=== PATIENT | male | born 1975 | race Caucasian/White ===

== ENCOUNTER 2024-01-20 18:48 | Emergency (ER) | payer OTHER, SELFPAY ==
[2024-01-20 18:55] VITALS: BP 170/104
--- NOTE | 2024-01-20 21:07 | ED.GENMED ---
History of Present Illness
General
Chief Complaint: Dental Problem
Source: patient
Exam Limitations: none
Time Seen by Provider: 01/20/24 20:52
History of Present Illness
History of Present Illness:
48-year-old male presents with ongoing issues in the right upper dentition into the right face. He states has been ongoing for weeks to months. His family convinced him to come get seen. Patient states he travels a lot for work and often just
puts off the care of his teeth. He states he has fractured teeth and gets his pain on the right side of his face up into his right cheek toward his right eye medially as well as laterally towards right anglican. He states it does seem to be off and
on and lancinating at times. No swelling. He does get cold and hot sensitivity to his teeth. 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 He states his foot
was red the other day. Is not sure if it is related
Past History
Past History
ED Past Surgical History: Orthopedic
Phy Exam
Physical Exam
Physical Exam:
CONSTITUTIONAL Vital signs reviewed, Patient alert and oriented to person, place and time. Well-appearing
HEAD atraumatic, normocephalic.
EYES eyelids normal to inspection, Extraocular muscles intact, Conjunctiva normal, Sclera normal.
ENT poor dentition. Dental caries noted to bilateral upper molars. Significantly noted to the right upper molars. Minimal tenderness. No facial swelling. No maxillary swelling. Right posterior molar is broken to the base at the gingiva.
NECK normal range of motion, Trachea midline, no jugular venous distention.
RESP no respiratory distress
BACK No obvious deformities
UPPER EXTREMITY Gross Range of motion normal, gross motor strength normal
LOWER EXTREMITY Gross range of motion normal, Gross motor strength normal
NEURO Speech normal, No focal motor deficits include, Patric coma scale 15, Memory normal, Cranial Nerves intact to screening exam.
SKIN Skin warm, dry, and normal in color.
PSYCHIATRIC Patient oriented to person place and time, Normal affect.
Course
Orders/Labs/Results
Orders:
Orders
01/20/24 21:06
Lyme Progressive Urgent
01/20/24 21:07
Penicillin V Potassium [Pen Vk] 500 mg PO NOW STA
Vital Signs
Initial and Last Documented VS:
Initial Vital Signs
Temp Pulse Resp BP Pulse Ox
98.1 F 82 20 170/104 97
01/20/24 18:55 01/20/24 18:55 01/20/24 18:55 01/20/24 18:55 01/20/24 18:55
Last Documented Vital Signs
Temp Pulse Resp BP Pulse Ox
98.1 F 82 20 170/104 97
01/20/24 18:55 01/20/24 18:55 01/20/24 18:55 01/20/24 18:55 01/20/24 18:55
MDM/Problems Addressed
MDM/Problems Addressed:
Dental caries, uncontrolled hypertension
*Pulse Oximetry
Patient hypoxic: no
*Critical Care Note
Total Time (30-74mins, 75-104mins- exclusive of procedures): Not Applicable
Data Reviewed
Source: patient
Further Testing Considered But Not Given:
Consider CT but no facial swelling. Extraocular muscles intact
Patient Management
Escalation/DeEscalation of care consider admission/obs:
Patient clearly needs dental follow-up. Likely symptomatic from nerve exposure. Cover with antibiotics. Okay for follow-up as outpatient
ED Attending Note
-
Portions of this chart may have been created with voice recognition software.� Occasional wrong word or��sound alike� substitutions may have occurred due to the inherent limitations of voice recognition software.
Discharge Plan
Departure
Patient Disposition: Home (Routine Discharge)
Date of Disposition: 01/20/24
Time of Disposition: 21:26
Patient with high blood pressure during this ER visit?: Yes
Discharge Problem:
Dental caries
Instructions: Tooth Abscess (DC), Tooth Decay, Adult (DC), BLOOD PRESSURE
Prescriptions:
New
penicillin V potassium 500 mg tablet
500 mg PO QID Qty: 28 0RF
Referrals:
NONE,* [Family Provider] -
Activity Restrictions/Additional Instructions:
Please see your dentist and follow-up as discussed. It is important that you have further evaluation for further management of dental issues. Return immediately for fevers, facial swelling, motor weakness of the face, vision changes or any other
concerns.
Interventions
Interventions:
*Risk Screen - Suicide Last Done: 01/20/24 18:55
*Neglect/Abuse Screening Last Done: 01/20/24 18:55
Discharge Date and Time
Print Language: [id number]
[2024-01-20] MEDS: PEN VK 500 MG PO (21:30)
[2024-01-20 21:43] VITALS: BP 152/107
[2024-01-21 14:39] LABS: Lyme Antibody Screen, EIA Negative (Negative)
== END 2024-01-20 21:46 | disposition home or self-care (01) ==
LOC: EMR 18:48
PROVIDERS: EMERGENCY PHYSICIAN Emergency Medicine
DX: K02.9 Dental caries, unspecified (principal); S02.5XXA Fracture of tooth (traumatic), initial encounter for closed fracture; K08.89 Other specified disorders of teeth and supporting structures; X58.XXXA Exposure to other specified factors, initial encounter; L53.9 Erythematous condition, unspecified; Z88.5 Allergy status to narcotic agent; Z88.8 Allergy status to other drugs, medicaments and biological substances
CPT/HCPCS: 99283; 86618

== ENCOUNTER 2024-12-09 13:47 | Emergency (ER) | payer OTHER, SELFPAY ==
[2024-12-09 13:54] VITALS: BP 128/104
[2024-12-09 14:20] LABS: Hematocrit 43.1 % (39.0-52.0); Hemoglobin 15.1 g/dL (13.0-18.0); Mean Corp Hgb Conc. 35.0 g/dL (33.0-37.0); Mean Corpuscular Volume 89.8 fL (80.0-94.0); Nucleated Red Blood Cells % 0 % (-); Platelet Count 260 10^3/uL (130-400); Red Cell Dist. Width 12.4 % (11.5-14.5)
[2024-12-09 14:37] LABS: ALT (SGPT) 23 U/L (0-50); AST (SGOT) 37 U/L (17-59); Albumin 4.4 g/dl (3.5-5.0); Alkaline Phosphatase 47 U/L (38-126); Blood Urea Nitrogen 15 mg/dl (9-20); Calcium 9.1 mg/dl (8.4-10.2); Carbon Dioxide 26 mmol/L (22-30); Chloride 105 mmol/L (98-107); Glucose 109 mg/dl (70-99); Potassium 4.1 mmol/L (3.5-5.1); Sodium 138 mmol/L (135-145); Total Protein 7.0 g/dl (6.3-8.2); eGFR > 60.00
--- NOTE | 2024-12-09 15:21 | ED.GENMED ---
History of Present Illness
<Alexander Murillo MD, Resident - Last Filed: 12/09/24 17:04>
General
Chief Complaint: Musculo-Skeletal Complaint
Source: patient
Exam Limitations: none
Time Seen by Provider: 12/09/24 15:00
Nursing documentation reviewed up to this point in time: agreed with
History of Present Illness
History of Present Illness:
This is a 49-year-old gentleman with no significant past medical history, not on any medications presents to the emergency department with complaints of right foot/ankle pain. He reports that he has a history of arthritis and he experienced similar
in the past and had extensive workup including workup for Lyme disease, gout, pseudogout and joint aspiration. Although workup was not conclusive. During these episodes he usually gets steroids and high-dose ibuprofen which helps. He specifically
denies any trauma. However admits to be hiking around the areas with tickborne diseases.
Past History
<Alexander Murillo MD, Resident - Last Filed: 12/09/24 17:04>
Past History
ED Past Medical History: Other (Arthritis)
ED Past Surgical History: Orthopedic
Patient has exhibited threatening behavior?: No
Social History
Tobacco: Non-smoker
Alcohol: Occasional
Drug: None
Personal: Single
Living: alone
Family History
Family History: Other (Noncontributory)
Review of Systems
<Alexander Murillo MD, Resident - Last Filed: 12/09/24 17:04>
Review of Systems
Allergies reviewed?: Yes
Constitutional: Denies fever or chills
EENT: Denies sore throat
Respiratory: Denies cough or trouble breathing
Cardiac: Denies chest pain or palpitations
ABD/GI: Denies abdominal pain, nausea, vomiting or diarrhea
: Denies dysuria, frequency or incontinence
Musculoskeletal: Reports joint pain and joint swelling
Skin: Denies itching
Neurological: Denies dizzy or headache
Endocrine: Denies polyuria
Hematologic/Lymphatic: Denies bleeding
Phy Exam
<Alexander Murillo MD, Resident - Last Filed: 12/09/24 17:04>
General Physical Exam
General Presentation: well appearing and no apparent distress
General age: appears stated age
General Skin: warm
General Habitus: normal
General Mental: alert
General Hydration: appears well hydrated
Cardiovascular Exam
Cardiovascular Exam: regular rate/rhythm and no murmur
Pulmonary Exam
Pulmonary Exam: lungs clear, no respiratory distress and no cough
Gastrointestinal Exam
Gastrointestinal Exam: normal bowel sounds, non tender, soft and non distended
Neurological Exam
Neurological Exam: alert, oriented x3, no motor deficits and no sensory deficits
Musculoskeletal Exam
Musculoskeletal Exam: other (Minimal swelling of right ankle, nontender to touch however there is some pain with right ankle range of motion)
Course
<Alexander Murillo MD, Resident - Last Filed: 12/09/24 17:04>
Orders/Labs/Results
Orders:
Orders
12/09/24
CR Foot - Right Min 3 Views Urgent
12/09/24 14:11
CMP [Comprehensive Metabolic Panel] Urgent
Complete Blood Count/With Diff Urgent
Lyme Progressive Urgent
12/09/24 15:48
Ankle, Right 3 view CR [CR Ankle - Right Min 3 Views *] Urgent
Comment:
Reason For Exam: pain/swelling.
Abnormal Lab Results
12/09/24
14:11
MCH 31.5 H pg
(27.0-31.0)
Absolute Neuts (auto) 7.5 H 10^3/uL
(1.4-6.5)
Absolute Monos (auto) 0.7 H 10^3/uL
(0.1-0.6)
Neutrophils % 77.4 H %
(42.2-75.2)
Lymphocytes % 13.8 L %
(20.5-51.1)
Glucose 109 H mg/dl
(70-99)
12/09/24 14:11
12/09/24 14:11
Vital Signs
Initial and Last Documented VS:
Initial Vital Signs
Temp Pulse Resp BP Pulse Ox
99.0 F 95 18 128/104 98
12/09/24 13:54 12/09/24 13:54 12/09/24 13:54 12/09/24 13:54 12/09/24 13:54
Last Documented Vital Signs
Temp Pulse Resp BP Pulse Ox
98.7 F 61 18 122/92 100
12/09/24 17:00 12/09/24 17:00 12/09/24 17:00 12/09/24 17:00 12/09/24 17:00
<Estevan H. Miguel, DO - Last Filed: 12/09/24 19:55>
Orders/Labs/Results
Orders:
Orders
12/09/24
CR Foot - Right Min 3 Views Urgent
12/09/24 14:11
CMP [Comprehensive Metabolic Panel] Urgent
Complete Blood Count/With Diff Urgent
Lyme Progressive Urgent
12/09/24 15:48
Ankle, Right 3 view CR [CR Ankle - Right Min 3 Views *] Urgent
Comment:
Reason For Exam: pain/swelling.
Abnormal Lab Results
12/09/24
14:11
MCH 31.5 H pg
(27.0-31.0)
Absolute Neuts (auto) 7.5 H 10^3/uL
(1.4-6.5)
Absolute Monos (auto) 0.7 H 10^3/uL
(0.1-0.6)
Neutrophils % 77.4 H %
(42.2-75.2)
Lymphocytes % 13.8 L %
(20.5-51.1)
Glucose 109 H mg/dl
(70-99)
12/09/24 14:11
12/09/24 14:11
Vital Signs
Initial and Last Documented VS:
Initial Vital Signs
Temp Pulse Resp BP Pulse Ox
99.0 F 95 18 128/104 98
12/09/24 13:54 12/09/24 13:54 12/09/24 13:54 12/09/24 13:54 12/09/24 13:54
Last Documented Vital Signs
Temp Pulse Resp BP Pulse Ox
98.7 F 61 18 122/92 100
12/09/24 17:00 12/09/24 17:00 12/09/24 17:00 12/09/24 17:00 12/09/24 17:00
<Alexander Murillo MD, Resident - Last Filed: 12/09/24 17:04>
MDM/Problems Addressed
Differential Diagnosis Includes:
Sprain vs strain vs arthritis vs less likely tendinitis vs lyme vs unlikely fracture
MDM/Problems Addressed:
Check CBC, CMP, Lyme
will get Xray of right ankle.
CBC unremarkable. CMP with mild elevaton of blood glucose. Lyme pending.
x-ray with Mild osteoarthrosis of the first metatarsophalangeal joint , will give prednisone 40 mg upon d/c for next 4 days. Also recommend use of 600 mg Motrin Q8 prn for 3 days.
<Alexander Murillo MD, Resident - Last Filed: 12/09/24 17:04>
*Pulse Oximetry
SaO2: 98
Oxygen Mode of Delivery: Room air
Patient hypoxic: no
*Critical Care Note
Total Time (30-74mins, 75-104mins- exclusive of procedures): Not Applicable
ED Attending Note
<Alexander Murillo MD, Resident - Last Filed: 12/09/24 17:04>
-
Portions of this chart may have been created with voice recognition software.� Occasional wrong word or��sound alike� substitutions may have occurred due to the inherent limitations of voice recognition software.
<Estevan Rivera DO - Last Filed: 12/09/24 19:55>
ED Attending Note
Patient seen and examined by attending physician: Yes
I performed a history and physical exam of patient and discussed management with resident, I reviewed resident's note and agree with documented findings and plan of care.: Yes
ED Attending Note:
I agree with the residents note
Patient presents complaining of pain in the right foot and ankle.
Physical exam is unremarkable.
Imaging shows no acute fracture. Radiology report suggest mild arthritic changes. Patient will be started on a course of steroids. Recommend ibuprofen and Tylenol every 6 hours. Follow-up podiatry.
Discharge Plan
Departure
Patient Disposition: Home (Routine Discharge)
Date of Disposition: 12/09/24
Time of Disposition: 16:31
Patient with high blood pressure during this ER visit?: Yes
Condition: Good
Discharge Problem:
Ankle pain, right
Instructions: Ibuprofen, Ankle sprain - ED discharge instructions, BLOOD PRESSURE
Prescriptions:
New
ibuprofen 600 mg tablet
600 mg PO Q8H PRN (Reason: Pain) Qty: 9 0RF
prednisone 10 mg tablet
40 mg PO DAILY Qty: 16 0RF
Rx Instructions:
Use 40 mg(4 tablets of 10 mg) by mouth daily for 4 days
No Action
penicillin V potassium 500 mg tablet
500 mg PO QID Qty: 28 0RF
Referrals:
Miranda Lima MD [Family Provider, Internal Medicine] - Follow up in 1 week
Activity Restrictions/Additional Instructions:
You were seen in the [facility] emergency department with concerns of right ankle pain while you were here we performed blood test including complete blood count, complete metabolic panel close results were unremarkable. We also performed
a Lyme test however the result takes 3-5 business days. X-ray of your right ankle was also taken.
Please utilize prednisone 40 mg daily for the next 4 days. You can also utilize ibuprofen 600 mg tablet every 8 hours as needed for pain for the next 3 days.
Please return to the emergency department if you develop any new symptoms or worsening with current symptoms.
Interventions
Interventions:
*Risk Screen - Suicide Last Done: 12/09/24 13:54
*General Assessment Last Done: 12/09/24 16:56
*Neglect/Abuse Screening Last Done: 12/09/24 13:54
*ED- Fall Risk Assessment Last Done: 12/09/24 16:56
*ED COVID-19 Vaccine History Last Done: 12/09/24 16:56
*Nursing Disposition Last Done: 12/09/24 17:00
ED-Musculoskeletal Assessment Last Done: 12/09/24 16:56
Discharge Date and Time
Discharge Date/Time: 12/09/24 16:55
Print Language: FRENCH
--- NOTE | 2024-12-09 16:59 | EDRN ---
Reviewed discharge instructions with patient. Verbalized understanding. Ambulated with steady gait to the lobby.
[2024-12-09 17:00] VITALS: BP 122/92
[2024-12-11 14:14] LABS: Lyme Antibody Screen, EIA Negative (Negative)
== END 2024-12-09 16:55 | disposition home or self-care (01) ==
LOC: EMR 13:47
PROVIDERS: Student in an Organized Health Care Education/Training Program; EMERGENCY PHYSICIAN Emergency Medicine; FAMILY PHYSICIAN Internal Medicine
DX: M25.571 Pain in right ankle and joints of right foot (principal); M19.071 Primary osteoarthritis, right ankle and foot
CPT/HCPCS: 99284; 73610; 73630; 80053; 85025; 86618